=== PATIENT | male | born 1960 | race Caucasian/White ===

== ENCOUNTER 2024-08-16 10:57 | Emergency (ER) | payer OTHER ==
[~2024-08-16] VITALS: Ht 172.7 cm; Wt 72.6 kg
[2024-08-16] MEDS: ketOROlac 30MG VIAL (30MG/ML) IM ONE (11:24)
[2024-08-16] MEDS: ORPHENADRINE 60MG/2ML IM ONE (11:24)
--- NOTE | 2024-08-16 11:29 | NUR ---
To X-ray Patient transported to x-ray, medications given prior to patient leaving dept.
--- NOTE | 2024-08-16 11:34 | NUR ---
Report Report given to Cheyenne Milner, injection molding operator
--- NOTE | 2024-08-16 11:46 | ERN ---
General Chief Complaint: Hip Pain/Injury Stated Complaint: RIGHT HIP PAIN Time Seen by MD: 11:02 Source: patient History of Present Illness Initial Comments PATIENT IS A 64-YEAR-OLD MALE COMING IN TO BE EVALUATED FOR RIGHT HIP PAIN. PATIENT STATES HE WAS DID NOT FALL BUT HE DOES HAS A HISTORY OF CHRONIC HIP PAIN. HE STATES THAT TODAY HE STARTED HAVING WORSENING PAIN SO HE WAS HERE FOR FURTHER EVALUATION. Allergies: Coded Allergies: No Known Drug Allergies (Unverified Allergy, Unknown, 08/16/24) Past Medical History Past Medical History: High Cholesterol, Hypertension, Seizure Past Surgical History: None ROS Dictation CONSTITUTIONAL: NO CHILLS, NO FEVER, NO WEAKNESS, NO DIAPHORESIS, NO MALAISE. HEAD/FACE: NO SIGNS OF TRAUMA. EENT: NO EYE PAIN, NO BLURRED VISION, NO TEARING, NO DOUBLE VISION, NO EAR PAIN, NO EAR DISCHARGE, NO NOSE PAIN, NO NASAL CONGESTION, NO THROAT PAIN, NO THROAT SWELLING, NO MOUTH PAIN. RESPIRATORY: NO COUGH, NO ORTHOPNEA, NO SOB, NO STRIDOR, NO WHEEZING. CARDIOVASCULAR: NO CHEST PAIN, NO EDEMA, NO PALPITATIONS, NO SYNCOPE. GASTROINTESTINAL/ABDOMINAL: NO ABDOMINAL PAIN, NO CONSTIPATION, NO DIARRHEA, NO NAUSEA, NO VOMITING. GENITOURINARY: NO ABNORMAL DISCHARGE, NO DYSURIA, NO FREQUENT URINATION, NO HEMATURIA. NO COMPLAINTS OF PAIN IN THE GENITALS. MUSCULOSKELETAL: NO BACK PAIN, NO GOUT, JOINT PAIN, NO JOINT SWELLING,MUSCLE PAIN, NO MUSCLE STIFFNESS, NO NECK PAIN. INTEGUMENTARY: NO CHANGE IN COLOR, NO CHANGE IN HAIR/NAILS, NO DRYNESS, NO LESION, NO LUMPS, NO RASH. NEUROLOGICAL/PSYCH: NO ANXIETY, NOT DEPRESSED, NO EMOTIONAL PROBLEM, NO HEADACHE, NO NUMBNESS, NO PRE-EXISTING DEFICIT, NO HISTORY OF SEIZURES, NO TREM ORS, NO WEAKNESS. HEMATOLOGIC/LYMPHATIC: NOT ANEMIC, NO HISTORY OF BLOOD CLOTS, NO APPARENT BLEEDING, NO BRUISING, GLANDS NOT SWOLLEN. ALL SYSTEMS NEGATIVE, EXCEPT NOTED. Physical Exam Physical Exam Dictation VITAL SIGNS: REVIEWED. GENERAL APPEARANCE: ALERT, ORIENTED X3, NO ACUTE DISTRESS, OBESE. HEAD AND FACE: NON-TRAUMATIC. EYES: PERRL, PINK CONJUNCTIVAS, EYELID NO TRAUMA, ANTERIOR CHAMBER CLEAR. EARS: PINNAS INTACT AND NO SIGNS OF TRAUMA OR ERYTHEMA. EAR CANALS CLEAR AND NO DISCHARGE. TMS NO ERYTHEMA. NOSE: NO DISCHARGE, NO BLEEDING. OROPHARYNX: MOUTH NORMAL, TEETH NO CARIES, TONGUE PINK. PHARYNX CLEAR, NO ERYTHEMA. TONSILS NO EXUDATES, NO ABSCESSES NOTED. MUCOUS MEMBRANE MOIST. NECK: SUPPLE, NON-TENDER, NO THYROMEGALY, NO MASSES, NO JVD, NO BRUITS. BREAST: DEFERRED. CHEST: NO TENDERNESS, NO CREPITUS, NO PARADOXICAL MOVEMENT, NO RETRACTIONS. LUNGS: CLEAR, WELL-VENTILATED, SYMMETRIC, NO RALES, NO WHEEZING, NO RHONCHI, NO STRIDOR, GOOD BREATH SOUNDS BILATERALLY. HEART: REGULAR RATE, REGULAR RHYTHM, NO MURMUR, NO GALLOPS. VASCULAR: NO PERIPHERAL EDEMA. ABDOMEN: SOFT, POSITIVE BOWEL SOUNDS, NONDISTENDED, NO GUARDING, NONTENDER, NO REBOUND, NO MASSES NO HEPATOMEGALY, NO SPLENOMEGALY, NO LANE'S SIGN, NO HERNIAS. RECTAL: DEFERRED. GENITAL: DEFERRED. NEUROLOGICAL: NORMAL SPEECH, GROSS MOTOR FUNCTION INTACT, GROSS SENSORY F UNCTION INTACT. MUSCULOSKELETAL: NECK NONTENDER, FULL RANGE OF MOTION, BACK NONTENDER, FULL RANGE OF MOTION. EXTREMITIES: NONTENDER, FULL RANGE OF MOTION. RIGHT HIP PAIN ON PALPATION, PAIN ON FLEXION AND EXTENSION SKIN: COLOR PINK, DRY, NO TURGOR, NO RASH, NO LACERATIONS, NO ABRASIONS, NO CONTUSIONS. LYMPHATICS: DEFERRED. Results Laboratory and Microbiology Labs Reviewed?: Yes EKG/XRAY/US/CT/MRI CT Scan Comment [place] [id number] [address] IMAGING REPORT Signed PATIENT: MEGAN SHIELDS MR#: [id number] : 1960 SEX: M AGE: 64 LOCATION: [facility] ORDER 1114 STATUS: [facility] REPORT#: [id number] SERVICE 1113 REASON: RIGHT HIP PAIN/ CHRONIC ORDERING PHYSICIAN: MYRANDA GARCIA MD PROCEDURE: LOW EXT WO - CT LOW EXT W/O CONTRAST Exam Type: CT LOW EXT W/O CONTRAST Clinical Information: RIGHT HIP PAIN/ CHRONIC Comparison: None Findings: There is narrowing of the acetabular joint space and there is superior marginal osteophytosis and subchondral sclerosis and subchondral cyst formation consistent with severe degenerative changes. Bone density is preserved. No acute fractures or dislocations are seen. No blastic or lytic lesions or bones are identified. The soft tissues are unremarkable. Impression: Severe degenerative changes as noted. No acute pathology. DICTATED BY: CLARIBEL WARD MD DATE: 08/16/24 1157 ELECTRONICALLY SIGNED BY: CLARIBEL WARD MD DATE: 08/16/24 1202 MDM MDM: DIFFERENTIAL DIAGNOSIS: HIP PAIN, OSTEOARTHRITIS OF THE HIP, CHRONIC HIP PAIN, RATIONALE: TESTS CONSIDERED AND ORDERED SECONDARY TO SHARED DECISION MAKING INCLUDE: PREVIOUS OUTSIDE RECORDS REVIEWED: OLD ER VISITS. RISK OF COMPLICATION AND/OR MORBIDITY OR MORTALITY OF PATIENT MANAGEMENT: NONE PATIENT IS A 64-YEAR-OLD MALE COMING IN TO BE EVALUATED FOR RIGHT HIP PAIN. CT ONLY DISCLOSE A OSTEOARTHRITIS OF THE RIGHT HIP. PATIENT DOES HAS A HISTORY OF OSTEOARTHRITIS. PATIENT WILL BE DISCHARGED IN STABLE CONDITION WITH A DIAGNOSIS OF CHRONIC OSTEOARTHRITIS OF THE RIGHT HIP. ED Course Orders Procedure Category Date Status Time Ct Low Ext W/O CT 08/16/24 Resulted Contrast 11:13 Orphenadrine Citrate PHA 08/16/24 Complete (Norflex) 11:30 Ketorolac PHA 08/16/24 Complete Tromethamine 30mg/Ml 11:30 Current Medications Medications (Trade) Dose Ordered Sig/Art Route PRN Reason Start Time Stop Time Status Last Admin Dose Admin Ketorolac Tromethamine (toRADol) 30 mg ONCE ONCE IM 08/16/24 11:30 08/16/24 11:31 DC 08/16/24 11:24 Orphenadrine Citrate (Norflex) 60 mg ONCE ONCE IM 08/16/24 11:30 08/16/24 11:31 DC 08/16/24 11:24 Vital Signs Date Time Temp Pulse Resp B/P (MAP) Pulse Ox O2 Delivery O2 Flow Rate FiO2 08/16/24 11:00 98.6 79 146/83 95 Room Air 0 DX & DISP Disposition: Discharge Departure Impression: Primary Impression: Osteoarthritis of right hip Condition: Stable Additional Instructions: FOLLOW-UP WITH PRIMARY CARE PROVIDER IN 1 TO 2 DAYS. TAKE MEDICATIONS DIRECTED HERE IN THE EMERGENCY ROOM. OKAY TO CONTINUE HOME MEDICATIONS UNLESS OTHERWISE DISCUSSED DURING YOUR VISIT IN THE EMERGENCY ROOM TODAY. RETURN TO YOUR NEAREST EMERGENCY ROOM IF SYMPTOMS WORSEN OR IF THERE IS NO IMPROVEMENT. CALL 911 IF YOU NEED IMMEDIATE ASSISTANCE. TAKE TYLENOL [id number] NEEDED AND IF NO CONTRAINDICATIONS ARE PRESENT. INCREASE ORAL HYDRATION. A WOUND CULTURE OR URINE CULTURE WAS ORDERED HERE IN THE EMERGENCY ROOM DEPARTMENT PLEASE FOLLOW-UP WITH PRIMARY CARE PROVIDER AND ADVISE THEM TO GET REPEAT PORTS FROM OUR FACILITY. IF YOU HAD ANY JEREMIAH WRAP/SPLINTS THAT WERE APPLIED HERE, PLEASE DO NOT REMOVE THEM UNTIL YOU SEE YOUR PRIMARY CARE OR SPECIALTY. REFERRALS: Referrals: BALA FOREMAN MD, [place] A MD Time of Disposition: 12:22 MYRANDA GARCIA MD Aug 16, 2024 11:46
--- NOTE | 2024-08-16 12:02 | HMCIMG ---
Exam Type: CT LOW EXT W/O CONTRAST Clinical Information: RIGHT HIP PAIN/ CHRONIC Comparison: None Findings: There is narrowing of the acetabular joint space and there is superior marginal osteophytosis and subchondral sclerosis and subchondral cyst formation consistent with severe degenerative changes. Bone density is preserved. No acute fractures or dislocations are seen. No blastic or lytic lesions or bones are identified. The soft tissues are unremarkable. Impression: Severe degenerative changes as noted. No acute pathology.
[2024-08-16 12:35] VITALS: BP 134/79; PULSE 81; RESP 16; TEMP 98.6; O2SAT 97
== END 2024-08-16 12:34 | disposition home or self-care (01) ==
LOC: EDH 10:57
DX: M16.11 Unilateral primary osteoarthritis, right hip (principal); I10 Essential (primary) hypertension; E78.00 Pure hypercholesterolemia, unspecified
CPT/HCPCS: 99285; 73700; 96372 ×2; J1885; J2360